=== PATIENT | male | born 1980 | race Caucasian/White ===

== ENCOUNTER 2020-07-25 14:52 | Emergency (ER) | payer SELFPAY ==
[~2020-07-25] VITALS: Ht 188 cm; Wt 102.0 kg
[2020-07-25 14:55] VITALS: BP 140/96
[2020-07-25] MEDS ORDERED: LIDO20SO16 PO (15:22)
== END 2020-07-25 15:26 | disposition home or self-care (01) ==
LOC: ER 14:52
DX: S19.9XXA Unspecified injury of neck, initial encounter (principal); Z79.899 Other long term (current) drug therapy; X58.XXXA Exposure to other specified factors, initial encounter; Y93.89 Activity, other specified; Y92.89 Other specified places as the place of occurrence of the external cause; Y99.8 Other external cause status
CPT/HCPCS: 99283